=== PATIENT | male | born 1945 | race Caucasian/White ===

== ENCOUNTER → 2016-11-07 08:55 | Outpatient (CLI) | payer MEDICARE ==
[2015-01-06 08:27] VITALS: BMI 36.5
[~2016-11-07 08:55] MED LIST: AMBIEN CR 6.26.25 MG PO; BENICAR20 MG PO; BENICAR5 MG PO; CARAFATE1 G PO; DEXILANT60 MG PO; DOXEPIN HCL10 MG PO; ECOTRIN325 MG PO; FISH OIL 1,0001 CA1 PO; HYDROCODON-ACE1 EAC7 PO; LIPITOR10 MG PO; MULTI-DAY VITAM1 TAB PO; NITROGLYCERIN0.3 MG SL; PEPCID20 MG PO; PLAVIX75 MG PO; PROTONIX40 MG PO; TOPROL XL25 MG PO; [UNRECOGNIZED DRUG - OTHER]
[2016-11-07 09:42] LABS: ALBUMIN 3.6 g/dL (3.4-5.0); BILIRUBIN - DIRECT 0.1 mg/dL (0.00-0.30); BILIRUBIN - INDIRECT 0.38 mg/dL (0.00-1.00); BILIRUBIN - TOTAL 0.48 mg/dL (0.2-1.3); PROTEIN - SERUM 6.6 g/dL (6.4-8.2)
== END | disposition home or self-care (01) ==
LOC: D.US 08:55
PROVIDERS: Internal Medicine Gastroenterology
DX: K76.0 Fatty (change of) liver, not elsewhere classified (principal)

== ENCOUNTER → 2017-05-09 08:56 | Outpatient (CLI) | payer MEDICARE ==
[2015-01-06 08:27] VITALS: BMI 36.5
== END | disposition home or self-care (01) ==
LOC: D.US 08:56
DX: K76.0 Fatty (change of) liver, not elsewhere classified (principal)

== ENCOUNTER → 2018-04-09 12:27 | Outpatient (CLI) | payer MEDICARE ==
[2015-01-06 08:27] VITALS: BMI 36.5
--- NOTE | ~2018-04-09 | EC ---
PATIENT:JOCE BORGES DATE OF SERVICE: 04/09/18 SEX: M MEDICAL RECORD: [id number] DATE OF : [birth year] [facility] AGE OF PATIENT: 72 ADMISSION DATE: 04/09/18 REFERRING PHYSICIAN: INTERPRETING PHYSICIAN: DEX CEDILLO MD ECHOCARDIOGRAM REPORT ECHO CHARGES 4 ECHO COMPLETE Date: 04/09/18 CLINICAL DIAGNOSIS: AFIB/DYSPNEA ECHOCARDIOGRAPHIC MEASUREMENTS (adult normal given) AC root (d.<3.7cm) 4.0 cm LV Septum d (<1.2 cm> 1.6 cm Valve Excursion 2.2 cm LV Septum (systole) 1.8 cm Left Atria (s.<4.0cm> 3.2 cm LVPW d(<1.2cm) 1.6 cm RV (d.<2.3cm) 3.6 cm LVPW (sytole) 1.9 cm LV diastole(<5.6CM) 5.0 cm MV E-F(>70mm/sec) cm LV systole 3.7 cm LVOT Diameter 2.1 cm MV exc.(>10mm) 1.3 cm Est.ejection fraction (50-75%) % DOPPLER: LVIT cm/sec A 111 cm/sec E 106 cm/sec LA cm/sec RVSP 25 mmHg LVOT 166 cm/sec AOP1/2T 9.52 m/s Asc. Ao 154 cm/sec RVOT 66 cm/sec RA cm/sec PA 113 cm/sec AV Gradient Peak 4.82 mmHg AV Mean 2.5 mmHg AV Area 2.5 cm MV Gradient Peak 6.63 mmHg MV Mean 2.25 mmHg MV Area cm COMMENTS: Research Biologist: Diego TEE Public Opinion Survey Taker: 1 Dr. Cedillo TAPE# PACS Pericardial Effusion N DATE OF SERVICE: 04/09/2018 FINDINGS: 1. Left ventricular chamber size is within normal limits. Left ventricular systolic function is normal. Overall ejection fraction is estimated at 55%. 2. Left atrium is within normal limits at 3.2 cm. Right atrium and right ventricular chamber sizes are mildly dilated. 3. Valvular structures have normal structure and motion. 4. Doppler interrogation reveals mild mitral regurgitation and mild tricuspid regurgitation. No other valvular insufficiency or stenosis. Pulmonary systolic ECHOCARDIOGRAM REPORT [id number] JOCE BORGES pressure is estimated at 25 mmHg. 5. No evidence of pericardial effusion or left ventricular thrombus. TRANSINT:[id number] Voice Confirmation ID: [id number] DOCUMENT ID: [id number] DEX CEDILLO MD at 1718 CC: [id number] DICTATION DATE: 04/09/18 1515 PROFESSIONAL NURSE: 04/09/18 1713 [address] [place] [id number] [place] [id number]
== END | disposition home or self-care (01) ==
LOC: D.ECHO 12:27
DX: I48.91 Unspecified atrial fibrillation (principal); R06.02 Shortness of breath

== ENCOUNTER → 2018-04-26 | Emergency (ER) | payer MEDICARE ==
[~2018-04-26] VITALS: Ht 171.4 cm; Wt 100.5 kg
[~2018-04-26] MED LIST changes: +ABSORICA40 MG PO; +GLUCOPHAGE500 MG PO; +LEVOXYL50 MCG PO; +MUCINEX600 MG PO
[2018-04-26 15:30] VITALS: Ht 171.4 cm; Wt 100.5 kg
[2018-04-26 19:04] LABS: BASOPHILS 0.5 % (0-2); EOSINOPHILS 1.7 % (0-7); HEMATOCRIT 47.1 % (42.0-54.0); HEMOGLOBIN 16.3 g/dL (13.5-17.5); IMMATURE GRANULOCYTES 0.2 % (0-5); LYMPHOCYTES 21.2 % (15-50); MCH 32.7 pg (26.0-34.0); MCHC 34.6 g/dL (31.0-37.0); MCV 94.6 fL (80.0-100.0); MEAN PLATELET VOLUME 11.2 fL (7.4-10.4); MONOCYTES 10.1 % (2-11); NEUTROPHILS 66.3 % (40-80); PLATELET COUNT 187 10x3/uL (130-400); RBC 4.98 10x6/uL (4.20-6.10); RDW 12.7 % (11.5-14.5); WBC 6.6 10x3/uL (4.8-10.8)
[2018-04-26 19:21] LABS: ALBUMIN 3.7 g/dL (3.4-5.0); ALKALINE PHOSPHATASE 72 U/L (46-116); ALT (SGPT) 19 U/L (10-68); BILIRUBIN - TOTAL 0.52 mg/dL (0.2-1.3); CALC OSMOLALITY 287 mosm/kg (275-300); CALCIUM 9.4 mg/dL (8.5-10.1); CARBON DIOXIDE 29.5 mmol/L (21.0-32.0); CHLORIDE - SERUM 104 mmol/L (98-107); CREATININE - SERUM 1.3 mg/dL (0.6-1.3); GLUCOSE 103 mg/dL (74-106); POTASSIUM - SERUM 4.2 mmol/L (3.5-5.1); SODIUM 144 mmol/L (136-145); UREA NITROGEN 16 mg/dL (7-18); eGFR NON AFRICAN AMERICAN 58 mL/min (90-120)
[2018-04-26 19:32] LABS: CKMB 1.4 U/L (0.0-3.6); TROPONIN-I < 0.017 ng/mL (0.000-0.060)
[2018-04-26 20:30] VITALS: BP 153/77
== END ==
LOC: D.ER 15:25
PROVIDERS: Emergency Medicine
DX: R53.1 Weakness (principal); Z86.79 Personal history of other diseases of the circulatory system; E11.9 Type 2 diabetes mellitus without complications; I10 Essential (primary) hypertension

== ENCOUNTER 2019-03-22 14:44 | Inpatient (IN) | payer MEDICARE ==
[~2019-03-22] VITALS: Ht 171.4 cm; Wt 98.2 kg
[2019-03-22 15:25] LABS: CALC OSMOLALITY 291 mosm/kg (275-300); CALCIUM 8.9 mg/dL (8.5-10.1); CARBON DIOXIDE 32.4 mmol/L (21.0-32.0); CHLORIDE - SERUM 103 mmol/L (98-107); CREATININE - SERUM 1.1 mg/dL (0.6-1.3); GLUCOSE 187 mg/dL (74-106); POTASSIUM - SERUM 4.2 mmol/L (3.5-5.1); SODIUM 142 mmol/L (136-145); UREA NITROGEN 25 mg/dL (7-18); eGFR NON AFRICAN AMERICAN 70 mL/min (90-120)
[2019-03-22 15:36] LABS: BASOPHILS 0.6 % (0-2); EOSINOPHILS 3.4 % (0-7); HEMOGLOBIN 14.8 g/dL (13.5-17.5); IMMATURE GRANULOCYTES 0.3 % (0-5); LYMPHOCYTES 12.3 % (15-50); MCH 33.3 pg (26.0-34.0); MCHC 34.4 g/dL (31.0-37.0); MCV 96.6 fL (80.0-100.0); MEAN PLATELET VOLUME 10.4 fL (7.4-10.4); MONOCYTES 6.6 % (2-11); NEUTROPHILS 76.8 % (40-80); PLATELET COUNT 156 10x3/uL (130-400); RBC 4.45 10x6/uL (4.20-6.10); RDW 12.5 % (11.5-14.5); WBC 7.1 10x3/uL (4.8-10.8)
[2019-03-22 15:39] LABS: APTT 30.7 SECONDS (22.8-39.4); INR 1.11 (0.85-1.17); PROTIME 13.8 SECONDS (11.6-15.0)
[2019-03-22 15:40] LABS: ALBUMIN 3.6 g/dL (3.4-5.0); ALKALINE PHOSPHATASE 110 U/L (46-116); ALT (SGPT) 39 U/L (10-68); BILIRUBIN - TOTAL 0.45 mg/dL (0.2-1.3); CKMB 1.1 U/L (0.0-3.6); CREATINE KINASE 53 UL (21-232); MAGNESIUM - SERUM 1.8 mg/dL (1.8-2.4); PROTEIN - SERUM 6.8 g/dL (6.4-8.2)
[2019-03-22 15:45] LABS: TROPONIN-I < 0.017 ng/mL (0.000-0.060)
[2019-03-22 16:12] LABS: THYROID STIMULATING HORMONE 1.38 uIU/mL (0.36-3.74)
--- NOTE | 2019-03-22 18:12 | NUR ---
CALLED FOR REPORT. ADVISED THAT ROOM WAS DIRTY AND THAT THEY WOULD CALL BACK. I ADVISED THAT I COULD STILL GIVE REPORT AND BRING THE PATIENT ONCE THE ROOM WAS CLEAN. I WAS THEN TOLD THAT THE RECIEVING NURSE HAD JUST RECIEVED 3 OTHER PATIENTS AND THAT SHE COULD NOT TAKE REPORT. I ADVISED OUR CHARGE, TIFFANIE PAREDES OF THE SITUATION.
--- NOTE | 2019-03-22 18:48 | NUR ---
REPORT CALLED TO LETICIA MACIEL. SHE ADVISED ROOM IS STILL DIRTY BUT THAT SHE WOULD CALL THE ED WHEN CLEAN.
[2019-03-22] MEDS ORDERED: BENICAR HCT 401 EAC1 PO (19:58)
[2019-03-22 20:00] VITALS: BP 155/96
[2019-03-22] MEDS ORDERED: FLUTICASONE PRO16 GM NASAL (20:01)
[2019-03-22] MEDS ORDERED: BETAPACE 80 MG80 MG PO (20:09)
[2019-03-22] MEDS ORDERED: FIBER SUPPLEMENT PO (20:10)
[2019-03-22 21:48] LABS: CKMB 1.2 U/L (0.0-3.6); CREATINE KINASE 56 UL (21-232); TROPONIN-I < 0.017 ng/mL (0.000-0.060)
--- NOTE | 2019-03-23 00:32 | NUR ---
RESTING WITH EYES CLOSED, RESPERATIONS EVEN, NO S/S DISTRESS NOTED.
[2019-03-23 03:51] VITALS: Ht 171.4 cm; Wt 98.2 kg
[2019-03-23 05:07] LABS: BASOPHILS 0.6 % (0-2); EOSINOPHILS 4.7 % (0-7); HEMATOCRIT 42.4 % (42.0-54.0); HEMOGLOBIN 14.3 g/dL (13.5-17.5); IMMATURE GRANULOCYTES 0.2 % (0-5); LYMPHOCYTES 25.4 % (15-50); MCH 32.8 pg (26.0-34.0); MCHC 33.7 g/dL (31.0-37.0); MCV 97.2 fL (80.0-100.0); MEAN PLATELET VOLUME 10.4 fL (7.4-10.4); MONOCYTES 9.3 % (2-11); NEUTROPHILS 59.8 % (40-80); PLATELET COUNT 143 10x3/uL (130-400); RBC 4.36 10x6/uL (4.20-6.10); RDW 12.6 % (11.5-14.5)
[2019-03-23 05:41] LABS: CALCIUM 8.9 mg/dL (8.5-10.1); CARBON DIOXIDE 31.5 mmol/L (21.0-32.0); CHLORIDE - SERUM 105 mmol/L (98-107); CREATINE KINASE 53 UL (21-232); CREATININE - SERUM 1.1 mg/dL (0.6-1.3); MAGNESIUM - SERUM 1.8 mg/dL (1.8-2.4); PHOSPHOROUS 3.9 mg/dL (2.5-4.9); POTASSIUM - SERUM 4.3 mmol/L (3.5-5.1); SODIUM 142 mmol/L (136-145); THYROID STIMULATING HORMONE 1.32 uIU/mL (0.36-3.74); UREA NITROGEN 21 mg/dL (7-18); eGFR NON AFRICAN AMERICAN 70 mL/min (90-120)
[2019-03-23 05:50] LABS: CALC OSMOLALITY 285 mosm/kg (275-300); GLUCOSE 100 mg/dL (74-106); TROPONIN-I < 0.017 ng/mL (0.000-0.060)
--- NOTE | 2019-03-23 07:53 | NUR ---
ALERT AND ORIENTED.TELEMERTY SHOWS SB 56. LEFT HAND SL PATENT. DENIES ANY SYMPTOMS OF DIZZINES OR NAUSEA. NPO UNTIL SEEN BY ECD. SR UP WITH CALL LIGHT IN REACH
[2019-03-23 08:00] VITALS: BP 119/71; BP 129/74; BP 143/72
[2019-03-23 12:00] VITALS: BP 114/70
--- NOTE | 2019-03-23 12:41 | NUR ---
LYING QUIETLY, FAMILY AT BEDSIDE. DENIES ANY NEEDS. WILL MONITOR
--- NOTE | 2019-03-23 12:42 | NUR ---
I have reviewed this patient and I concur with the Shift Assessment completed by the Licensed Practical Nurse today this shift.
--- NOTE | 2019-03-23 13:14 | NUR ---
PTS ORTHOSTATIC B/P: LYING 129/74 PULSE 61, SITTING 143/72 PULSE 59, STANDING 119/71 PULSE 74.
[2019-03-23 16:00] VITALS: BP 125/68
--- NOTE | 2019-03-23 16:04 | EC ---
PATIENT:JOCE BORGES DATE OF SERVICE: 03/22/19 SEX: M MEDICAL RECORD: [id number] DATE OF : [birth year] LOCATION:D. D.212 AGE OF PATIENT: 73 ADMISSION DATE: 03/23/19 REFERRING PHYSICIAN: INTERPRETING PHYSICIAN: LUISANA GRAVES MD ECHOCARDIOGRAM REPORT ECHO CHARGES 4 ECHO COMPLETE Date: 03/23/19 CLINICAL DIAGNOSIS: TIA ECHOCARDIOGRAPHIC MEASUREMENTS (adult normal given) AC root (d.<3.7cm) 3.5 cm LV Septum d (<1.2 cm> 1.4 cm Valve Excursion 1.1 cm LV Septum (systole) 1.6 cm Left Atria (s.<4.0cm> 3.2 cm LVPW d(<1.2cm) 1.5 cm RV (d.<2.3cm) 4.4 cm LVPW (sytole) 1.6 cm LV diastole(<5.6CM) 3.2 cm MV E-F(>70mm/sec) cm LV systole 2.0 cm LVOT Diameter 2.0 cm MV exc.(>10mm) 1.8 cm Est.ejection fraction (50-75%) % DOPPLER: LVIT cm/sec A 96.0 cm/sec E 82.0 cm/sec LA cm/sec RVSP 18 mmHg LVOT 111 cm/sec AOP1/2T m/s Asc. Ao 127 cm/sec RVOT 80 cm/sec RA cm/sec PA 89 cm/sec AV Gradient Peak 6.42 mmHg AV Mean 3.33 mmHg AV Area 1.9 cm MV Gradient Peak 4.82 mmHg MV Mean 1.75 mmHg MV Area cm COMMENTS: Slip Caster: 2 ANTOLIN TEE Graduate Intern: 3 Dr. Aguirre TAPE# PACS Pericardial Effusion N DATE OF SERVICE: Adequate 2D, color-flow, spectral Doppler, and M-mode. LVH is present. LV internal dimension is normal. Wall motion is normal. EF is greater than or equal to 55%. Aortic valve is tricuspid. No evidence of stenosis by Doppler interrogation. Left atrium is normal at 3.2 cm. Mitral valve shows no prolapse. Trace MR. Right-sided chambers are grossly normal. Mild TR. TRANSINT:[id number] Voice Confirmation ID: [id number] DOCUMENT ID: [id number] ECHOCARDIOGRAM REPORT [id number] JOCE BORGES GREGORY A MD at 1604 CC: [id number] DICTATION DATE: 03/23/19 1259 TYPEWRITER RIBBON WINDER: 03/23/19 1309 ADM IN [facility] [address] [place] [id number]
--- NOTE | 2019-03-23 16:04 | CN ---
PATIENT NAME:JOCE BORGES MEDICAL RECORD: [id number] : 47 LOCATION:[facility].2120 ADMIT DATE: 03/23/19 ACCOUNT: [id number] CONSULTING PHYSICIAN: LUISANA GRAVES MD REFERRING PHYSICIAN: BERTIN TELLEZ MD DATE OF CONSULTATION: 03/23/2019 HISTORY OF PRESENT ILLNESS: Duke Borges is a 73-year-old gentleman with a history of coronary artery disease, status post stenting, has a history of atrial fibrillation, currently in sinus. Admitted with dizziness, diaphoresis, nausea. Reports just being generally unstable on his feet. This is a really acute onset yesterday morning, felt better this a.m. No previous history of vertigo and no new medications. We are asked to see him concerning his cardiovascular status. No recent angina or arrhythmogenic type symptomatology. PAST MEDICAL HISTORY: Includes; 1. History of coronary artery disease, status post intervention. 2. Atrial fibrillation. 3. Dyslipidemia. 4. Hypothyroidism, on replacement. MEDICATIONS: Include Synthroid 50 mcg every day, Ambien 10 mg p.o. at bedtime, [place] 5/325 every 4 hours p.r.n., sotalol 40 b.i.d., Benicar HCT 40/25 every day, atorvastatin 10 every day, Plavix 75 every day. ALLERGIES: SULFA. SOCIAL HISTORY: Nonsmoker, nondrinker. Easily takes care of all his ADLs, does try to walk at least 4 mornings a week. REVIEW OF SYSTEMS: The patient reports easy bruising but reports no swollen glands. The patient reports no fever, no night sweats, no significant weight gain, no significant weight loss. No significant exercise tolerance. The patient reports no dry eyes, no irritation, no vision change. Patient reports no difficulty hearing and no ear pain. Patient reports no frequent nose bleeds or nose and sinus problems. Patient reports on arm pain on exertion. No shortness of breath while lying down. No history of heart murmur. Patient reports no cough, no wheezing or coughing up blood. Patient reports no abdominal pain, no vomiting. Normal appetite. No diarrhea and not vomiting blood. No nausea and no constipation. Patient reports no incontinence. No difficulty urinating. No hematuria. No increased frequency. Patient reports no muscle aches. No weakness, no arthralgias, no back pain. No swelling of the extremities. Patient reports no abnormal mole, no jaundice, no rashes. Reports no loss of consciousness. No weakness and no numbness. No seizures, dizziness, or headaches. The patient reports no depression, no sleep disturbance, feeling safe in a relationship and no alcohol abuse. Patient reports on fatigue. Reports no runny nose or sinus pressure. No itching, no hives, and no frequent sneezing. REVIEW PHYSICAL EXAMINATION: GENERAL: Pleasant gentleman, in no acute distress, appears stated age. VITAL SIGNS: Blood pressure 155/96, pulse 60 and regular. HEENT: Normocephalic and atraumatic. NECK: No JVD or bruit. HEART: Regular. II/ systolic ejection murmur. CONSULT REPORT [id number] JOCE BORGES LUNGS: Good air excursion. ABDOMEN: Soft, nontender. EXTREMITIES: Pulses well preserved, 2+ with no edema. DIAGNOSTIC DATA: EKG shows nonspecific ST-T changes, incomplete right bundle. IMPRESSION: Difficult to say may be a component of intravascular volume depletion with elevated BUN, agree with hydration. Check echo. Carotid Dopplers has improved markedly overnight. No contraindication. Discharge from a cardiovascular standpoint. TRANSINT:[id number] Voice Confirmation ID: [id number] DOCUMENT ID: [id number] LUISANA GRAVES MD at 1604 CC: [id number] DICTATION DATE: 03/23/19813 VENEER JOINER: 03/23/19923 ADM IN [facility] [address] [place] [address]
[2019-03-23 20:00] VITALS: BP 138/60
[2019-03-24] VITALS: BP 125/70
[2019-03-24 04:00] VITALS: BP 125/66
[2019-03-24 04:25] LABS: BASOPHILS 0.5 % (0-2); EOSINOPHILS 5.2 % (0-7); HEMATOCRIT 43.2 % (42.0-54.0); HEMOGLOBIN 14.6 g/dL (13.5-17.5); IMMATURE GRANULOCYTES 0.2 % (0-5); LYMPHOCYTES 29.5 % (15-50); MCH 32.7 pg (26.0-34.0); MCHC 33.8 g/dL (31.0-37.0); MCV 96.9 fL (80.0-100.0); MEAN PLATELET VOLUME 10.7 fL (7.4-10.4); MONOCYTES 11.7 % (2-11); NEUTROPHILS 52.9 % (40-80); PLATELET COUNT 156 10x3/uL (130-400); RBC 4.46 10x6/uL (4.20-6.10); RDW 12.6 % (11.5-14.5)
[2019-03-24 05:08] LABS: CALC OSMOLALITY 285 mosm/kg (275-300); CALCIUM 8.8 mg/dL (8.5-10.1); CARBON DIOXIDE 30.9 mmol/L (21.0-32.0); CHLORIDE - SERUM 104 mmol/L (98-107); GLUCOSE 95 mg/dL (74-106); MAGNESIUM - SERUM 1.8 mg/dL (1.8-2.4); PHOSPHOROUS 4.5 mg/dL (2.5-4.9); POTASSIUM - SERUM 4.3 mmol/L (3.5-5.1); SODIUM 142 mmol/L (136-145); UREA NITROGEN 20 mg/dL (7-18); eGFR NON AFRICAN AMERICAN 78 mL/min (90-120)
--- NOTE | 2019-03-24 07:10 | NUR ---
PATIENT LAYING IN BED ON BACK AWAKE, ALERT AND ORIENTED X 4. PATIENT DENIES ANYH NEEDS OR PAIN . PATIENT IS STABLE AND VSS. WILL CONTINUE WITH PLAN OF CARE. SR UP X 2 BED IN LOW POSITION AND CALL LIGHT IN REACH.
[2019-03-24 08:45] VITALS: BP 131/72
--- NOTE | 2019-03-24 11:56 | NUR ---
PATIENT IS STABLE AND VSS. PATIENT DENIES ANY NEEDS OR PAIN. ORDERS RECEVIED FOR DC. WRITTEN AND VERBAL INSTRUCTIONS GIVEN TO PATIENT AND PTS SON. BOTH VERBALIZED UNDERSTANDING AND PATIENT SIGNED PAPERWORK. IVD DCD WITHOUT DIFFICULTY WITH ENTIRE CATHETER INTACT. PRESSURE DRSG APPLIED. PATIENT TO FRONT DOOR VIA WC ACCOMPAINIED BY HOSPITAL STAFF TO PRIVATE VEHICLE DRIVEN BY SON. PATIENT IS DCD HOME FOR SELF CARE.
--- NOTE | 2019-03-24 16:38 | MORECARE ---
CASE MANAGEMENT DISCHARGE SUMMARY PATIENT: JOCE BORGES UNIT: [id number] ADM DATE: 03/23/19 AGE: 73 : [birth year] SEX: M ROOM/BED: D.0730 AUTHOR: TE,DOC PHYSICIAN: REFERRING PHYSICIAN: BERTIN TELLEZ MD DATE OF SERVICE: 03/24/19 Discharge Plan Patient Name: JOCE BORGES Facility: [facility]:[place] : 1945 Planned Disposition: Home Anticipated Discharge Date: 03/24/19 Discharge Date: 03/24/2019 Expected LOS: 1 Initial Reviewer: [email or web address] Initial Review Date: 03/24/2019 Generated: 03/24/19 5:38 pm Comments DCP- Discharge Planning Updated by [email or web address]: Rojas Burrell on 03/24/19 3:[address] Patient Name: JOCE BORGES Admission Status: ER Accout number: [id number] Admission Date: 03-23-2019 : 1945 Admission Diagnosis: Attending: BERTIN TELLEZ Current LOS: 1 Anticipated DC Date: 03-24-2019 Planned Disposition: Home Primary Insurance: MEDICARE A & B Discharge Planning Comments: CM MET WITH PT IN ROOM TO DISCUSS DISCHARGE PLANNING AND NEEDS. PT REPORTS LIVING AT HOME INDEPENDENTLY WITH HIS . PT HAS NO MEDICAL EQUIPMENT AND NO OUTSIDE SERVICES ASSISTING IN THE HOME. CM DISCUSSED AVAILABILITY OF HOME HEALTH, REHAB SERVICES AND MEDICAL EQUIPMENT. PT DENIES DISCHARGE NEEDS, REPORTS FAMILY WILL PICK HIM UP FOR DISCHARGE HOME TODAY. Litigation Examiner: Rojas Burrell DCPIA - Discharge Planning Initial Assessment Updated by [email or web address]: Rojas Burrell on 03/24/19 4:32 pm * Is the patient Alert and Oriented? Yes * How many steps to enter\exit or inside your home? * PCP DR. CARLISLE * Pharmacy [facility] * Preadmission Environment Home with Family * ADLs Independent * Equipment None * Other Equipment [facility] PATIENT - PREFERRED PROVIDER * List name and contact numbers for known caregivers / representatives who currently or will assist patient after discharge: JAD BORGES, SON, * Verbal permission to speak to the caregivers and representatives has been obtained from the patient. N/A * Community resources currently utilized None * Please name any agencies selected above. NONE * Additional services required to return to the preadmission environment? No * Can the patient safely return to the preadmission environment? Yes * Has this patient been hospitalized within the prior 30 days at any hospital? No Coverage Notice Reviewer: [id number] Mounika Traylor Notice Issued Date-Time: 03/22/2019 17:55 Notice Type: Medicare Outpatient Observation Notice Notice Delivered To: Patient Relationship to Patient: Acid Condenser Name: Delivery Method: HAND - Hand Delivered Carolin Days: Prior Verbal Notification: Recipient Understood Notice: Recipient Signature: Med Rec Note Co-signed by Attending: Coverage Notice Comment: Patient Name: JOCE BORGES Page [id number] at 1638 All edits/amendments must be made on the electronic document DICTATION DATE: 03/24/198 EXTRUSION ENGINEER: BROWN 03/24/19 1638 RPT#: [id number] DC DATE:03/24/19 STATUS: DIS IN [facility] [address] [place] [address] END OF REPORT
== END 2019-03-24 13:04 | disposition home or self-care (01) | DRG 312 ==
LOC: D.ER 14:44 → OBSVTIME 17:46 → D.M2 17:46
PROVIDERS: Emergency Medicine; ADMIT Internal Medicine Nephrology; ATTEND Internal Medicine Nephrology
DX: R55 Syncope and collapse (principal); N17.9 Acute kidney failure, unspecified; E78.5 Hyperlipidemia, unspecified; I48.91 Unspecified atrial fibrillation; I25.10 Atherosclerotic heart disease of native coronary artery without angina pectoris; E03.9 Hypothyroidism, unspecified; I10 Essential (primary) hypertension; E11.51 Type 2 diabetes mellitus with diabetic peripheral angiopathy without gangrene; F32.9 Major depressive disorder, single episode, unspecified; M19.90 Unspecified osteoarthritis, unspecified site; I45.10 Unspecified right bundle-branch block; E86.9 Volume depletion, unspecified

== ENCOUNTER → 2019-07-20 14:08 | Outpatient (CLI) | payer MEDICARE ==
[2019-03-23 03:51] VITALS: BMI 33.4
[~2019-07-20 14:08] MED LIST changes: +BENICAR HCT 401 EAC1 PO; +BETAPACE 80 MG80 MG PO; +FIBER SUPPLEMENT PO; +FLUTICASONE PRO16 GM NASAL
== END | disposition home or self-care (01) ==
LOC: D.NM 14:08
PROVIDERS: ATTEND Internal Medicine Gastroenterology
DX: R11.2 Nausea with vomiting, unspecified (principal); R10.13 Epigastric pain

== ENCOUNTER 2020-01-22 15:20 | Emergency (ER) | payer MEDICARE ==
[~2020-01-22] VITALS: Ht 171.4 cm; Wt 89.5 kg
[2020-01-22 15:28] VITALS: Ht 171.4 cm; Wt 89.5 kg
[2020-01-22 16:34] LABS: CALC OSMOLALITY 279 mosm/kg (275-300); CALCIUM 9.6 mg/dL (8.5-10.1); CARBON DIOXIDE 28.4 mmol/L (21.0-32.0); CHLORIDE - SERUM 102 mmol/L (98-107); CREATININE - SERUM 1.2 mg/dL (0.6-1.3); GLUCOSE 109 mg/dL (74-106); SODIUM 138 mmol/L (136-145); UREA NITROGEN 21 mg/dL (7-18); eGFR NON AFRICAN AMERICAN 63 mL/min (90-120)
[2020-01-22 16:40] LABS: BASOPHILS 0.4 % (0-2); EOSINOPHILS 2.1 % (0-7); HEMATOCRIT 48.5 % (42.0-54.0); HEMOGLOBIN 16.6 g/dL (13.5-17.5); IMMATURE GRANULOCYTES 0.1 % (0-5); LYMPHOCYTES 21.2 % (15-50); MCH 32.3 pg (26.0-34.0); MCHC 34.2 g/dL (31.0-37.0); MCV 94.4 fL (80.0-100.0); MEAN PLATELET VOLUME 10.7 fL (7.4-10.4); MONOCYTES 10.4 % (2-11); NEUTROPHILS 65.8 % (40-80); PLATELET COUNT 184 10x3/uL (130-400); RBC 5.14 10x6/uL (4.20-6.10); RDW 12.8 % (11.5-14.5)
[2020-01-22 16:46] LABS: APTT 32.1 SECONDS (22.8-39.4); INR 1.08 (0.85-1.17); PROTIME 13.9 SECONDS (11.6-15.0)
[2020-01-22 16:50] LABS: ALBUMIN 3.7 g/dL (3.4-5.0); ALKALINE PHOSPHATASE 87 U/L (30-120); ALT (SGPT) 26 U/L (10-68); BILIRUBIN - TOTAL 0.59 mg/dL (0.2-1.3); CKMB 1.5 U/L (0.0-3.6); CREATINE KINASE 63 UL (21-232); MAGNESIUM - SERUM 1.8 mg/dL (1.8-2.4); PROTEIN - SERUM 6.7 g/dL (6.4-8.2)
[2020-01-22 16:57] LABS: TROPONIN-I < 0.017 ng/mL (0.000-0.060)
[2020-01-22 18:05] VITALS: BP 120/66
== END 2020-01-22 18:05 | disposition home or self-care (01) ==
LOC: D.ER 15:20
PROVIDERS: Family Medicine
DX: I48.91 Unspecified atrial fibrillation (principal); E11.9 Type 2 diabetes mellitus without complications; I10 Essential (primary) hypertension; I25.2 Old myocardial infarction; Z79.84 Long term (current) use of oral hypoglycemic drugs